=== PATIENT | male | born 2000 | race Caucasian/White ===

== ENCOUNTER 2024-05-25 16:57 | Emergency (ER) | payer MEDICAID ==
[~2024-05-25] VITALS: Ht 177.8 cm; Wt 78.0 kg
[2024-05-25 16:59] VITALS: O2SAT 99
[2024-05-25 17:02] VITALS: TEMP 98.2; O2SAT 99
[2024-05-25] MEDS ORDERED: NAPR-1176 MT (19:07)
[2024-05-25] MEDS: TETANUS, DIPHTHERIA, PERTUSSIS VAC/PF 0.5ML (>10YR OLD) IM ONE (19:18)
[2024-05-25 19:19] VITALS: BP 127/78; PULSE 76; RESP 14
[2024-05-25] MEDS: KETOROLAC 30MG/ML VIAL IM ONE (19:19)
[2024-05-25] MEDS: HYDROCODONE/ACETAMINOPHEN 5/325MG TABLET PO ONE (19:19)
== END 2024-05-25 19:37 | disposition home or self-care (01) ==
LOC: ER 16:57
DX: M79.604 Pain in right leg (principal); W05.2XXA Fall from non-moving motorized mobility scooter, initial encounter; Y93.89 Activity, other specified; Y92.89 Other specified places as the place of occurrence of the external cause; Y99.8 Other external cause status
CPT/HCPCS: 99284; 73502; 73552; 90715; 90471; 96372; J1885